=== PATIENT | male | born 1940 | race Caucasian/White ===

== ENCOUNTER 2017-02-20 21:05 | Inpatient (IN) | payer MEDICARE, OTHER ==
--- NOTE | ~2017-02-20 | DS ---
Discharge Summary [facility] [address] [place]. [address] NAME: ROGER ENCISO : 38 STATUS : ADM IN PAT#: [id number] AGE: 76 ADM/REG DATE : 02/21/17 MR#: [id number] REPORT SERV DATE: 02/24/17 DICTATED BY: VLADIMIR DURAN DATE: 02/24/17 REPORT STATUS : Draft TRANSCRIBED BY: MODL DATE: 02/24/17 ADMISSION DATE: 02/21/2017 DISCHARGE DATE: 02/24/2017 DISCHARGE DIAGNOSES: 1. Metabolic encephalopathy, now resolved. 2. Urinary tract infection from Escherichia coli, that is pansensitive. 3. Chronic iron-deficiency anemia. 4. Hypertension. 5. Generalized debility. 6. Constipation, now resolved. 7. Acute kidney injury, now resolved. 8. History of cerebrovascular accident in the past. 9. Thrombocytopenia, now resolved. 10.Coronary artery disease, status post coronary artery bypass graft. 11.History of colon cancer in 2005, currently resolved. 12.Chronic obstructive pulmonary disease. 13.Osteoarthritis. CONSULTANTS DURING THIS HOSPITALIZATION: None. INVASIVE PROCEDURES DONE DURING THIS HOSPITALIZATION: None. BRIEF HISTORY OF PRESENT ILLNESS: The patient is a 76-year-old male presented with generalized weakness and abnormal gait as well as altered mental status, so he is admitted. For detailed history and physical exam, please see note dictated by Dr. Sanchez Beal on 02/21/2017. HOSPITAL COURSE: After being admitted to the hospital, this patient was started on empiric IV antibiotics. Blood sugar control was offered. IV fluids were given. When I saw the patient, this patient's metabolic encephalopathy was somewhat improving, but he was not completely clear. We were awaiting his urine culture and his Rocephin was continued. All his other chronic medical issues remained fairly stable even though there was some fluctuation of his blood sugars. He continued to improve. We gave him IV fluids. His acute kidney injury resolved. Urine culture came back positive for E. coli, pansensitive. Blood cultures remained negative. This patient was seen by Physical Therapy. He was so debilitated. Inpatient therapy was recommended. The patient is somewhat reluctant to go to inpatient rehab and thinks that he could manage at home. However, after assessing and discussing with the , it was decided that he would benefit from a short stay at a alf facility. Today, he feels well and is ready to be discharged. DISCHARGE DISPOSITION: To alf facility. DISCHARGE ACTIVITY: Per facility. DISCHARGE DIET: 1800-calorie [employer] diet. Discharge Summary [facility] [address] [place]. [address] NAME: ROGER ENCISO : 38 STATUS : ADM IN PAT#: [id number] AGE: 76 ADM/REG DATE : 02/21/17 MR#: [id number] REPORT SERV DATE: 02/24/17 DICTATED BY: VLADIMIR DURAN DATE: 02/24/17 REPORT STATUS : Draft TRANSCRIBED BY: ADONAY DATE: 02/24/17 DISCHARGE MEDICATIONS: Norvasc 10 mg once daily, aspirin 81 mg once daily, Lipitor 40 mg once daily, Coreg 6.25 mg once daily, Plavix 75 mg once daily, DiaBeta 10 mg twice daily, metformin 1000 mg twice daily, Levaquin 750 mg p.o. for three more days, omega-3 fish oil once daily, potassium 10 mEq once daily, Easy Iron 200 mg once daily, lisinopril 30 mg once daily. DISCHARGE FOLLOWUP: With Dr. Julián Littlejohn post rehab. More than 35 minutes spent planning this patient's discharge, reconciling medications, discussing hospital care, and the need for rehab with the patient and the on multiple occasions and also signing all forms for rehab and documenting this discharge. DICTATED BY: Elda Shultz/ADONAY Vladimir Duran M.D. / [id number] CC: Elda Shultz JOHN D.
--- NOTE | ~2017-02-20 | HP ---
History And Physical [facility] [address]. [address] NAME: ROGER STONE : 38 STATUS : ADM Juliana PAT#: [id number] AGE: 76 ADM/REG DATE : 02/20/17 MR#: [id number] REPORT SERV DATE: 02/21/17 DICTATED BY: SANCHEZ PANTOJA DATE: 02/21/17 REPORT STATUS : Draft TRANSCRIBED BY: MODL DATE: 02/21/17 DATE OF ADMISSION: 02/20/2017 CHIEF COMPLAINT: Weakness, inability to walk, and mental confusion. HISTORY OF PRESENT ILLNESS: This is a 76-year-old male with history of hypertension, history of prior CVA, diabetes mellitus type 2, and coronary artery disease, who presents to the emergency room at [facility], with the above- mentioned complaint. History is obtained from the patient's family, who are around him and reviewing data available on the [employer] system. According to available data, Mr. Stone has been confused and weak for the last two to three days. His daughters say that since the last 48 hours or so, he has been so confused and weak. Yesterday, he could not even get up from bed and go to the restroom. Sometimes, he loses bladder control before he reaches the bathroom and urinates on the floor. He has also been confused. Yesterday, he came out of the restroom without any clothes on. These kind of things have never happened before and they were very concerned he was having a stroke. Today, he could not even get up from the bed, as he was so weak. In the emergency room, initial workup including CT scan of the brain and a chest x-ray did not reveal any acute pathology. Workup did reveal a urinary tract infection with hyperglycemia as well. Hospitalist Service is asked to admit him for further evaluation and treatment. At the time of my evaluation, he was quite confused, did not know where he was or the names of the daughters or granddaughter. He had not complained of any chest pain according to the family. He has not had any palpitations or orthopnea. He has not had any cough in the recent weeks. He has not had any falls or loss of consciousness. No history of fevers, but his did say, in the last 24 hours or so, he had been piling blankets on himself. No history of nausea, vomiting, or diarrhea. No history of bleeding from anywhere recently. No other history of recent travel or exposures. PAST MEDICAL HISTORY: Significant for history of hypertension, CVA, diabetes mellitus type 2, history of coronary artery disease with CABG in the past, history of CVA, colon cancer in 2006, COPD, systolic heart failure with an ejection fraction of 40% to 45%. SOCIAL HISTORY: He does not smoke, drink, or use recreational drugs. FAMILY HISTORY: Noncontributory. MEDICATIONS: His medications at home were reviewed by me in the chart today and reordered by me. REVIEW OF SYSTEMS: As in history of present illness. Most of other systems were unable to be reviewed due to the patient's encephalopathy. History And Physical [address] [address] NAME: ROGER STONE : 38 STATUS : ADM Juliana PAT#: [id number] AGE: 76 ADM/REG DATE : 02/20/17 MR#: [id number] REPORT SERV DATE: 02/21/17 DICTATED BY: SANCHEZ PANTOJA DATE: 02/21/17 REPORT STATUS : Draft TRANSCRIBED BY: ADONAY DATE: 02/21/17 PHYSICAL EXAMINATION: GENERAL: This is a pleasant 76-year-old, not in any acute distress. He was alert and awake, but not oriented to time, place, or person. HEENT: Pupils were equal and reacting to light and accommodating. His head was atraumatic, normocephalic. External ocular muscles were intact. Membranes were moist and pink. Sclerae were nonicteric. NECK: Supple with no jugular venous distention, lymphadenopathy, or thyromegaly. LUNGS: Clear to auscultation with no wheezes, rubs, or crackles. HEART: Heart sounds were regular with no murmurs, rubs, or gallops. ABDOMEN: Soft, nontender. Bowel sounds are present. EXTREMITIES: Showed no cyanosis, clubbing, or edema. NEUROLOGIC: Grossly intact. He was able to move all four extremities. He follows commands. He is disoriented. Gait was not examined at this time. VITAL SIGNS: His vital signs today showed temperature of 99.7, pulse 80, respirations 18 a minute, blood pressure was 170/75, oxygen saturations were 97% breathing 2 L of oxygen. LABORATORY DATA: Reviewed on the [employer] system showed a sodium of 130, potassium 3.8, chloride 101, CO2 of 28, BUN was 16 with a creatinine of 1.24, blood glucose was 193. Liver numbers were within normal limits. Ammonia was 16. CBC showed a normal white blood cell count of 8400, hemoglobin was 9.4, hematocrit 31.9, platelet count was 60. His MCV was 75.2. Urinalysis showed large leukocyte esterase, nitrite was positive, there were greater than 182 wbc's with rare bacteria. Films of the CT scan of the brain and chest x-ray were reviewed by me on the PACS today and interpreted by me. CT scan of the brain did not reveal any acute intracranial abnormalities. Chest x-ray did not reveal any acute pulmonary infiltrates, did not have any lobar consolidations or pleural effusions. IMPRESSION: 1. Generalized weakness. 2. Gait abnormality. 3. Altered mental status. 4. Urinary tract infection. 5. Anemia. 6. Thrombocytopenia. 7. Hypertension. 8. History of cerebrovascular accident in 2009. 9. Diabetes mellitus type 2 with hyperglycemia. 10.Coronary artery disease with CABG. 11.Chronic obstructive pulmonary disease. 12.Systolic heart failure. PLAN: We will admit Mr. Stone to the Hospitalist Service with telemetry for a 24-hour observation. After cultures are drawn, we will start him on empiric IV antibiotics at this time. We will start him on ceftriaxone intravenously. We will start him on blood sugar control with NovoLog given subcutaneously per sliding scale. Start him on IV fluids for volume resuscitation. We will follow this with chemistry and electrolytes in the morning and replete as needed. We will continue home medications and other treatments as well. We History And Physical [address] [place]. [address] NAME: ROGER STONE : 38 STATUS : ADM Juliana PAT#: [id number] AGE: 76 ADM/REG DATE : 02/20/17 MR#: [id number] REPORT SERV DATE: 02/21/17 DICTATED BY: SANCHEZ PANTOJA DATE: 02/21/17 REPORT STATUS : Draft TRANSCRIBED BY: MODL DATE: 02/21/[address] on unfractionated heparin for DVT prophylaxis while he is here. Please see today's orders for details. I do not think he is having an acute CVA. He is following commands and has no weaknesses or speech abnormality. It may all be from the urinary tract infection. However, we will reassess him in the morning and then proceed for MRI/MRA if necessary. Hospitalist Service will be following him during his stay here. MR/KATEL Sanchez Pantoja M.D. / [id number] CC: Elda Alvarez M.D.
[~2017-02-20 21:05] MED LIST: ASAB PO; ATEN25 PO; BYETTA10 SC; DIABETA5 PO; FISH-EPA1000 MG PO; GLUCOV5 PO; GLUCPH PO; HALF81 PO; KLOR-CON M1010 MEQ PO; L20 PO; LIPITOR40 PO; LIPITOR80 MG PO; NORV10 PO; NORV5 PO; OTC PAIN CREAM TOP; PLAVIX PO; PRILOSEC40 MG PO; PRINZIDE1 TA1 PO; PROTONIX PO; ZESTRIL30 MG PO
[2017-02-20 23:31] LABS: BASOPHILS 0 %; EOSINOPHILS 0.4 %; EOSINOPHILS ABSOLUTE 0.03 10/3/uL (0.0-0.53); ER CBC TAT 0 Hrs 05 Mins; HEMATOCRIT 31.9 % (40.0-51.0); HEMOGLOBIN 9.4 g/dL (13.6-17.8); IMMATURE GRANULOCYTES 0.1 %; IMMATURE GRANULOCYTES ABSOLUTE 0.01 10/3/uL (0.0-0.11); LYMPHOCYTES 8.4 %; MEAN CORPUS HGB CONC 29.5 g/dL (32.0-36.0); MEAN CORPUSCULAR HEMOGLOB 22.2 pg (26.0-34.0); MEAN CORPUSCULAR VOLUME 75.2 fL (80-100); MONOCYTES 5.7 %; MONOCYTES ABSOLUTE 0.48 10/3/uL (0.21-1.20); NEUTROPHILS 85.4 %; NEUTROPHILS ABSOLUTE 7.15 10/3/uL (2.02-8.40); PLATELET COUNT 60 10/3/uL (150-400); RBC DISTRIBUTION WIDTH 17.1 % (12.0-16.0); RED CELL COUNT 4.24 10/6/uL (4.7-6.1); WHITE BLOOD CELLS 8.4 10/3/uL (4.5-10.5)
[2017-02-20 23:32] LABS: ASCORBIC ACID (UR NOT ORDER) NEG (NEG); BILIRUBIN, URINE NEGATIVE (NEG); ER URINALYSIS TAT 0 Hrs 00 Mins; KETONE, URINE NEGATIVE (NEG); LEUKOCYTE ESTERASE(NOT OR LARGE (NEG); NITRITE (URINE) POS (NEG); WBC (NOT ORDERED) (RFLEX) > 182 (0-5)
[2017-02-20 23:32] LABS: MANUAL DIFF NO %
[2017-02-20 23:38] LABS: INTERNATIONAL NORMAL RATI 1.3 UNITS (-); PROTIME (NOT ORD) 16.1 SEC (12.0-14.5)
[2017-02-20 23:39] LABS: PARTIAL THROMBO TIME 30.3 SEC (22.5-37.2)
[2017-02-20 23:48] LABS: ALBUMIN 3.4 G/DL (3.5-5.0); BUN (BLOOD UREA NITROGEN) 16 MG/DL (6-23); CALCIUM, SERUM 9.2 MG/DL (8.5-10.4); CHEST PAIN PROFILE TAT 0 Hrs 22 Mins; CHLORIDE, SERUM 101 MMOL/L (96-112); CO2 (CARBON DIOXIDE) 28 MMOL/L (24-34); CREATININE 1.24 MG/DL (0.70-1.30); DIRECT BILIRUBIN 0.2 MG/DL (0.0-0.4); GFR AFRICAN AMERICAN 64 ML/MIN (>=60); GFR NON AFRICAN AMERICAN 55 ML/MIN (>=60); INDIRECT BILIRUBIN(NOT ORDER) 0.5 MG/DL (0.1-0.9); POTASSIUM, SERUM 3.8 MMOL/L (3.5-5.3); SGOT(AST) 10 U/L (5-40); SGPT(ALT) 23 U/L (5-65); SODIUM, SERUM 135 MMOL/L (135-148); TOTAL BILIRUBIN 0.7 MG/DL (0-1.2); TROPONIN I 0.03 NG/ML (<0.05)
[2017-02-20 23:49] LABS: PLATELET ESTIMATE DEC (ADEQUATE)
[2017-02-20 23:50] LABS: ALKALINE PHOSPHATASE 85 U/L (45-117); CPK 36 U/L (0-200); GLUCOSE, SERUM 193 MG/DL (60-99); RBC MORPHOLOGY NORM (NORMAL)
[2017-02-21] MEDS ORDERED: EZFE 200200 MG PO (01:59)
[2017-02-21] MEDS ORDERED: KDUR10 PO (02:00)
[2017-02-21] MEDS ORDERED: ZESTRIL30 MG PO (02:00)
[2017-02-21] MEDS ORDERED: PLAVIX PO (02:00)
[2017-02-21] MEDS ORDERED: LIPITOR40 PO (02:01)
[2017-02-21] MEDS ORDERED: ASAB PO (02:01)
[2017-02-21] MEDS ORDERED: DIABETA5 PO (02:01)
[2017-02-21] MEDS ORDERED: FISH-EPA1000 MG PO (02:01)
[2017-02-21] MEDS ORDERED: COREG6 PO (02:01)
[2017-02-21] MEDS ORDERED: NORV10 PO (02:01)
[2017-02-21] MEDS ORDERED: GLUCOPHAGE1000 MG PO (02:02)
[2017-02-21 06:09] LABS: BASOPHILS 0 %; EOSINOPHILS 0.2 %; EOSINOPHILS ABSOLUTE 0.02 10/3/uL (0.0-0.53); HEMATOCRIT 32.3 % (40.0-51.0); HEMOGLOBIN 9.6 g/dL (13.6-17.8); IMMATURE GRANULOCYTES 0.3 %; IMMATURE GRANULOCYTES ABSOLUTE 0.03 10/3/uL (0.0-0.11); LYMPHOCYTES 8.3 %; LYMPHOCYTES ABSOLUTE 0.78 10/3/uL (0.67-4.30); MEAN CORPUS HGB CONC 29.7 g/dL (32.0-36.0); MEAN CORPUSCULAR HEMOGLOB 22.4 pg (26.0-34.0); MEAN CORPUSCULAR VOLUME 75.3 fL (80-100); MONOCYTES ABSOLUTE 0.57 10/3/uL (0.21-1.20); NEUTROPHILS 85.2 %; NEUTROPHILS ABSOLUTE 8.03 10/3/uL (2.02-8.40); PLATELET COUNT 69 10/3/uL (150-400); RBC DISTRIBUTION WIDTH 17.1 % (12.0-16.0); RED CELL COUNT 4.29 10/6/uL (4.7-6.1); WHITE BLOOD CELLS 9.4 10/3/uL (4.5-10.5)
[2017-02-21 06:11] LABS: MANUAL DIFF NO %
[2017-02-21 06:29] LABS: FREE T4 1.03 NG/DL (0.76-1.46); PHOSPHORUS, SERUM 2.5 MG/DL (2.5-4.5)
[2017-02-21 06:30] LABS: ULTRASENSITIVE TSH 1.53 MCIU/ML (0.358-3.740)
[2017-02-21 06:33] LABS: MICROCYTES 1+ (5-10/OIF) (0-5/OIF); PLATELET ESTIMATE DEC (ADEQUATE)
[2017-02-21 06:34] LABS: OVALOCYTES 1+ (3-10/OIF) (0-2/OIF); RBC MORPHOLOGY ABN (NORMAL)
[2017-02-22 06:22] LABS: BASOPHILS 0 %; EOSINOPHILS 0.3 %; EOSINOPHILS ABSOLUTE 0.02 10/3/uL (0.0-0.53); HEMATOCRIT 30.2 % (40.0-51.0); IMMATURE GRANULOCYTES 0.2 %; IMMATURE GRANULOCYTES ABSOLUTE 0.01 10/3/uL (0.0-0.11); LYMPHOCYTES 8.3 %; LYMPHOCYTES ABSOLUTE 0.51 10/3/uL (0.67-4.30); MANUAL DIFF NO %; MEAN CORPUS HGB CONC 29.8 g/dL (32.0-36.0); MEAN CORPUSCULAR HEMOGLOB 22.2 pg (26.0-34.0); MEAN CORPUSCULAR VOLUME 74.4 fL (80-100); MEAN PLATELET VOLUME 9.4 fL (9.2-13.0); MONOCYTES ABSOLUTE 0.55 10/3/uL (0.21-1.20); NEUTROPHILS 82.2 %; NEUTROPHILS ABSOLUTE 5.02 10/3/uL (2.02-8.40); PLATELET COUNT 61 10/3/uL (150-400); RBC DISTRIBUTION WIDTH 16.9 % (12.0-16.0); RED CELL COUNT 4.06 10/6/uL (4.7-6.1); WHITE BLOOD CELLS 6.1 10/3/uL (4.5-10.5)
[2017-02-22 06:36] LABS: BUN (BLOOD UREA NITROGEN) 17 MG/DL (6-23); CALCIUM, SERUM 8.7 MG/DL (8.5-10.4); CHLORIDE, SERUM 100 MMOL/L (96-112); CO2 (CARBON DIOXIDE) 26 MMOL/L (24-34); CREATININE 1.31 MG/DL (0.70-1.30); GFR AFRICAN AMERICAN 60 ML/MIN (>=60); GFR NON AFRICAN AMERICAN 52 ML/MIN (>=60); GLUCOSE, SERUM 157 MG/DL (60-99); PHOSPHORUS, SERUM 2.5 MG/DL (2.5-4.5); POTASSIUM, SERUM 3.7 MMOL/L (3.5-5.3); SODIUM, SERUM 134 MMOL/L (135-148)
[2017-02-22 06:40] LABS: ALBUMIN 2.7 G/DL (3.5-5.0)
[2017-02-22 06:42] LABS: MICROCYTES 1+ (5-10/OIF) (0-5/OIF); PLATELET ESTIMATE DEC (ADEQUATE)
[2017-02-22 06:43] LABS: RBC MORPHOLOGY ABN (NORMAL)
[2017-02-23 05:25] LABS: BASOPHILS 0 %; EOSINOPHILS 1.9 %; EOSINOPHILS ABSOLUTE 0.07 10/3/uL (0.0-0.53); HEMOGLOBIN 8.6 g/dL (13.6-17.8); LYMPHOCYTES 13.7 %; MEAN CORPUS HGB CONC 29.7 g/dL (32.0-36.0); MEAN CORPUSCULAR HEMOGLOB 22.2 pg (26.0-34.0); MEAN CORPUSCULAR VOLUME 74.9 fL (80-100); MEAN PLATELET VOLUME 9.3 fL (9.2-13.0); MONOCYTES 10.7 %; MONOCYTES ABSOLUTE 0.39 10/3/uL (0.21-1.20); NEUTROPHILS 73.7 %; NEUTROPHILS ABSOLUTE 2.68 10/3/uL (2.02-8.40); PLATELET COUNT 66 10/3/uL (150-400); RED CELL COUNT 3.87 10/6/uL (4.7-6.1)
[2017-02-23 05:26] LABS: MANUAL DIFF NO %; WHITE BLOOD CELLS 3.6 10/3/uL (4.5-10.5)
[2017-02-23 05:42] LABS: ALBUMIN 2.6 G/DL (3.5-5.0); BUN (BLOOD UREA NITROGEN) 19 MG/DL (6-23); CALCIUM, SERUM 8.5 MG/DL (8.5-10.4); CHLORIDE, SERUM 103 MMOL/L (96-112); CO2 (CARBON DIOXIDE) 26 MMOL/L (24-34); CREATININE 1.11 MG/DL (0.70-1.30); GFR AFRICAN AMERICAN 73 ML/MIN (>=60); GFR NON AFRICAN AMERICAN 63 ML/MIN (>=60); PHOSPHORUS, SERUM 2.9 MG/DL (2.5-4.5); POTASSIUM, SERUM 3.7 MMOL/L (3.5-5.3); SODIUM, SERUM 137 MMOL/L (135-148)
[2017-02-23 05:46] LABS: GLUCOSE, SERUM 113 MG/DL (60-99)
[2017-02-23 06:05] LABS: ANISOCYTOSIS 1+ (5-10/OIF) (0-5/OIF); HYPOCHROMIA 1+ (3-10/OIF) (0-2/OIF); MACROCYTES 1+ (5-10/OIF) (0-5/OIF); PLATELET ESTIMATE DEC (ADEQUATE)
[2017-06-06] MEDS ORDERED: XARELTO20 MG PO (14:58)
[2017-06-06] MEDS ORDERED: PRILO PO (14:59)
== END 2017-02-24 17:13 | DRG 682 ==
LOC: ER 21:05 → CDU1 22:00 → 5SO 02-21 17:24
PROVIDERS: Emergency Medicine; Internal Medicine
DX: N17.9 Acute kidney failure, unspecified (principal); G93.41 Metabolic encephalopathy; I50.22 Chronic systolic (congestive) heart failure; E11.65 Type 2 diabetes mellitus with hyperglycemia; D69.6 Thrombocytopenia, unspecified; J44.9 Chronic obstructive pulmonary disease, unspecified; N39.0 Urinary tract infection, site not specified; B96.20 Unspecified Escherichia coli [E. coli] as the cause of diseases classified elsewhere; I10 Essential (primary) hypertension; I25.10 Atherosclerotic heart disease of native coronary artery without angina pectoris; D64.9 Anemia, unspecified; R53.81 Other malaise; Z86.73 Personal history of transient ischemic attack (TIA), and cerebral infarction without residual deficits; Z95.1 Presence of aortocoronary bypass graft; Z85.038 Personal history of other malignant neoplasm of large intestine; Z79.899 Other long term (current) drug therapy; Z98.890 Other specified postprocedural states
CPT/HCPCS: 70450; 71010; 80048; 80069; 80076; 81001; 82140; 82550; 82962; 83605; 83735; 84100; 84145; 84439; 84443; 84484; 85025; 85610; 85730; 87040; 87077; 87086; 87186; 94640; 96374; 97161-GP; 97530-GP; 99285; A9270-GY; G8978-CK-GP; G8979-CJ-GP